=== PATIENT | female | born 1990 | race Caucasian/White ===

== ENCOUNTER 2018-02-16 16:18 | Emergency (ER) | payer MEDICAID ==
[2018-02-16] MEDS: SOD CHLORIDE 0.9% 1,000 ML IV ×2 (19:08→20:32)
[2018-02-16] MEDS: ONDANSETRON 4 MG INJ IV (20:32)
[2018-02-16] MEDS: morphine 2 MG INJ IV (20:32)
== END 2018-02-16 22:27 | disposition home or self-care (01) ==
LOC: FTE 16:18
DX: M79.604 Pain in right leg (principal)
CPT/HCPCS: 73510; 73550; 73562; 73590; 73610-RT; 73630; 81025; 96374; 96375; 99284-25